=== PATIENT | female | born 1995 | race Caucasian/White ===

== ENCOUNTER 2017-03-14 16:23 | Emergency (ER) | payer BC ==
[2017-03-14 16:32] VITALS: BP 120/69
--- NOTE | 2017-03-14 16:42 | UC ---
Throat Pain/Nasal [place] HPI - HPI Summary HPI Summary: 21 y/o female presents to the urgent care c/o sore throat, body aches, temp of 100.5, mild BRANHAM since this morning. Pt has not taking anything to alleviate symptoms. Pt states sore throat with difficulty swallowing, pain 5/10. Pt denies cough, SOB, chest pain, abdominal pain, N/V/D - History of Current Complaint Chief Complaint: UCRespiratory Stated Complaint: THROAT PAIN Time Seen by Provider: 03/14/17 16:33 Hx Obtained From: Patient Hx Last Menstrual Period: 01/2017 ?: No Onset/Duration: Gradual Onset, Lasting Hours - since this morning, Still Present Severity: Moderate Pain Intensity: 5 Pain Scale Used: 0-10 Numeric Cough: None Associated Signs & Symptoms: Positive: Dysphagia, Sinus Discomfort, Fever - Epiglottits Risk Factors Epiglottis Risk Factors: Negative - Allergies/Home Medications Allergies/Adverse Reactions: Allergies Allergy/AdvReac Type Severity Reaction Status Date / Time No Known Allergies Allergy Verified 03/14/17 16:32 Home Medications: Home Medications Desogestrel-Ethinyl Estradiol [Kariva 0.15-0.02/0.01 mg (11/10)] 1 tab PO [History] PMH/Surg Hx/FS Hx/Imm Hx Previously Healthy: Yes - Pt denies PMHX - Surgical History Surgical History: None - Family History Known Family History: Positive: Cardiac Disease, Diabetes - Social History Occupation: Student Lives: With Family Alcohol Use: Occasionally Substance Use Type: None Smoking Status (MU): Never Smoked Tobacco - Immunization History Vaccination Up to Date: Yes Review of Systems Constitutional: Fever, Other - body aches Skin: Negative Eyes: Negative ENT: Sore Throat, Sinus Congestion Respiratory: Negative Cardiovascular: Negative Gastrointestinal: Negative Genitourinary: Negative Motor: Negative Neurovascular: Negative Musculoskeletal: Negative Neurological: Headache - mild Psychological: Negative Is Patient Immunocompromised?: No All Other Systems Reviewed And Are Negative: Yes Physical Exam Triage Information Reviewed: Yes Vital Signs: Initial Vital Signs Temp 98.5 F 03/14/17 16:28 Pulse 108 03/14/17 16:28 Resp 18 03/14/17 16:28 BP 120/69 03/14/17 16:28 Pulse Ox 100 03/14/17 16:28 - Additional Comments VITAL SIGNS: Reviewed. GENERAL: Patient is a well developed and nourished female who is sitting comfortable in the examining table. Patient is not in any acute respiratory distress. HEAD AND FACE: No signs of trauma. No ecchymosis, hematomas or skull depressions. No sinus tenderness. EYES: PERRLA, EOMI x 2, No injected conjunctiva, no nystagmus. No photophobia. EARS: Hearing grossly intact. Ear canals and tympanic membranes are within normal limits. MOUTH: Positive pharynx with erythema, no exudates, positive palatal petechiae. B/L tonsillar enlargement with mild exudate. Uvula in midline. NECK: Supple, trachea is midline, Positive anterior cervical lymphadenopathy, no JVD, no carotid bruit, no c-spine tenderness, neck with full ROM. CHEST: Symmetric, no tenderness at palpation LUNGS: Clear to auscultation bilaterally. No wheezing or crackles. CVS: Regular rate and rhythm, S1 and S2 present, no murmurs or gallops appreciated. ABDOMEN: Soft, non-tender. No signs of distention. No rebound no guarding, and no masses palpated. Bowel sounds are normal. EXTREMITIES: FROM in all major joints, no edema, no cyanosis or clubbing. NEURO: Alert and oriented x 3. No acute neurological deficits. Speech is normal and follows commands. SKIN: Dry and warm Throat Pain/Nasal Course/Dx - Course Course Of Treatment: 21 y/o female presents to the urgent care c/o sore throat, body aches, temp of 100.5, mild BRANHAM since this morning. Pt has not taking anything to alleviate symptoms. Pt states sore throat with difficulty swallowing , pain 5/10. Pt denies cough, SOB, chest pain, abdominal pain, N/V/D. HX obtained. Rapid strep ordered, result: negative. Viral pharyngitis. Influeza A& B ordered, result: negative. Pt Rx ibuprofen PO to alleviates symptoms of pain and swelling. Advised on hand washing to avoid spreading. Pt advised to rest, eat well and avoid strenuous exercise. If symptoms do not improve or worsen advised to return to the urgent care or f/u with her PCP for further evaluation and treatment. Pt understood and agreed - Differential Dx/Diagnosis Differential Diagnosis/HQI/PQRI: Influenza, Mononucleosis, Otitis Media, Pharyngitis, Sinusitis, Tonsillitis, URI Provider Diagnoses: 1- Viral pharyngitis Discharge - Discharge Plan Condition: Stable Disposition: HOME Patient Education Materials: Pharyngitis (ED) Referrals: [facility] [Outside] - If Needed Additional Instructions: 1-Please take ibuprofen PO q6-8hrs prn as instructed after meals to alleviate pain and swelling. Please increase fluid intake, rest , eat well. avoid strenuous exercise. 2-If symptoms do not improve or worsen please return to the urgent care or f/u with your PCP for further evaluation and treatment.
== END 2017-03-14 17:07 | disposition home or self-care (01) ==
LOC: UCEAST 16:23
DX: J06.9 Acute upper respiratory infection, unspecified (principal)
CPT/HCPCS: 87502; 87651; 99202; G0463

== ENCOUNTER 2017-04-02 07:44 | Emergency (ER) | payer BC ==
[2017-04-02 07:55] VITALS: BP 134/74
--- NOTE | 2017-04-02 09:46 | UC ---
Skin Complaint HPI - HPI Summary HPI Summary: PT HERE CONCERNED ABOUT HERPES. HAD SEX WITH A MALE ABOUT 3 WEEKS AGO WHO YESTERDAY INFORMED HER THAT HE WAS DIAGNOSED WITH GENITAL HERPES. HAD LESIONS AT BASE OF PENIS OUTSIDE THE CONDOM AREA THAT PT THOUGH WAS RAZOR BURN. SHE PERFORMED ORAL SEX ON HIM AND ALSO HAD VAGINAL INTERCOURSE. ABOUT 4 DAYS LATER DEVELOPED LOW BACK PAIN, FEVER [address] DENIES ANY LESIONS. SX LASTED ABOUT 2 DAYS AND PT CONTINUES TO BE SYMPTOM FREE. DUE TO RECENT DIAGNOSIS OF SEX PARTNER PT IS REQUESTING HERPES TESTING. - History of Current Complaint Chief Complaint: UCSTDScreening Time Seen by Provider: 04/02/17 08:40 Stated Complaint: PERSONAL Hx Obtained From: Patient Hx Last Menstrual Period: 03/22/17 Skin Exposure Onset/Duration: Weeks Ago Current Severity: None Pain Intensity: 0 Pain Scale Used: 0-10 Numeric Associated Signs & Symptoms: Positive: Negative - Allergy/Home Medications Allergies/Adverse Reactions: Allergies Allergy/AdvReac Type Severity Reaction Status Date / Time No Known Allergies Allergy Verified 04/02/17 07:52 Review of Systems Constitutional: Negative Skin: Negative Respiratory: Negative Cardiovascular: Negative Gastrointestinal: Negative All Other Systems Reviewed And Are Negative: Yes PMH/Surg Hx/FS Hx/Imm Hx Previously Healthy: Yes - Surgical History Surgical History: None - Family History Known Family History: Positive: Cardiac Disease, Hypertension, Diabetes - Social History Alcohol Use: Occasionally Substance Use Type: None Smoking Status (MU): Never Smoked Tobacco - Immunization History Vaccination Up to Date: Yes Physical Exam Triage Information Reviewed: Yes Appearance: Well-Appearing, No Pain Distress, Well-Nourished Vital Signs: Initial Vital Signs Temp 97.8 F 04/02/17 07:52 Pulse 87 04/02/17 07:52 Resp 20 04/02/17 07:52 BP 134/74 04/02/17 07:52 Pulse Ox 100 04/02/17 07:52 Vital Signs Reviewed: Yes Eyes: Positive: Conjunctiva Clear ENT: Positive: Hearing grossly normal Neck: Positive: Supple Respiratory: Positive: No respiratory distress, No accessory muscle use Cardiovascular: Positive: Pulses Normal Abdomen Description: Positive: Soft Musculoskeletal: Positive: No Edema Neurological: Positive: Alert Psychological: Positive: Age Appropriate Behavior Skin: Negative: rashes Course/Dx - Diagnoses Provider Diagnoses: HERPES EXPOSURE Discharge - Discharge Plan Condition: Stable Disposition: HOME Patient Education Materials: Genital Herpes Simplex (ED), Oral Herpes Simplex Virus Infections (ED) Referrals: [facility] [Primary Care Provider] - If Needed Additional Instructions: HERPES ANTIBODY TESTING DONE TODAY. BE VIGILANT OF YOUR SYMPTOMS AND IF YOU HAVE ANY SUSPICIOUS LESIONS GET SEEN AGAIN.
[2017-04-03 14:50] LABS: Herpes Simplex Virus I IgG AB Negative (Negative); Herpes Simplex Virus II IgG AB Negative (Negative)
[2017-04-04 11:47] LABS: Herpes Simplex IgM Screen Reactive (Negative)
--- NOTE | 2017-04-05 11:47 | UC ---
Progress - Progress Note Progress Note: Pt serum test for HSV following recent exposure. Pt with reactive IgM - antibody testing pending Pt neg IgG 1+2 negative Please update pt regarding pending confirmatory testing is pending. Mandeep 04/05/17
[2017-04-06 09:13] LABS: Reference Lab Test SEE COMMENTS
--- NOTE | 2017-04-08 20:08 | UC ---
Progress - Progress Note Progress Note: Pt serum test for HSV following recent exposure. Pt with reactive IgM - antibody testing pending Pt neg IgG 1+2 negative Please update pt regarding pending confirmatory testing is pending. Mandeep 04/05/17 Update 04/08--reactive for IgM antibody, but confirmatory test is still pending.
== END 2017-04-02 09:44 | disposition home or self-care (01) ==
LOC: UCEAST 07:44
DX: Z20.2 Contact with and (suspected) exposure to infections with a predominantly sexual mode of transmission (principal); Z11.4 Encounter for screening for human immunodeficiency virus [HIV]
CPT/HCPCS: 36415; 86694; 86695; 86696; 86703; 99211; G0463

== ENCOUNTER 2017-07-15 20:37 | Emergency (ER) | payer BC ==
[2017-07-15 20:57] VITALS: BP 107/66
[2017-07-15] MEDS ORDERED: Sulfamethox/Trimethoprim DS 800/160* TAB PO ONE (21:59)
--- NOTE | 2017-07-15 21:59 | UC ---
Complaint Female HPI - HPI Summary HPI Summary: 21 yo WF c/o dysuria, urinary frequency and urgency and low abd pressure x 1 week w/o LBP, f/c/n/v - History Of Current Complaint Chief Complaint: UCGU Stated Complaint: BURNING URINATION Time Seen by Provider: 07/15/17 21:28 Hx Obtained From: Patient Hx Last Menstrual Period: 07/05/17 Onset/Duration: Lasting Days Timing: Constant Severity Initially: Moderate Severity Currently: Moderate Pain Intensity: 0 - Allergies/Home Medications Allergies/Adverse Reactions: Allergies Allergy/AdvReac Type Severity Reaction Status Date / Time No Known Allergies Allergy Verified 07/15/17 20:57 Home Medications: Home Medications Ferrous Gluconate [Iron] 240 mg PO DAILY 07/15/17 [History Confirmed 07/15/17] PMH/Surg Hx/FS Hx/Imm Hx - Additional Past Medical History Additional PMH: none - Surgical History Surgical History: None - Family History Known Family History: Positive: Cardiac Disease, Hypertension, Diabetes - Social History Alcohol Use: Occasionally Substance Use Type: None Smoking Status (MU): Never Smoked Tobacco - Immunization History Vaccination Up to Date: Yes Review of Systems Constitutional: Negative Skin: Negative Eyes: Negative ENT: Negative Respiratory: Negative Cardiovascular: Negative Gastrointestinal: Negative Genitourinary: Dysuria, Frequency, Urgency Motor: Negative Neurovascular: Negative Musculoskeletal: Negative Neurological: Negative Psychological: Negative Is Patient Immunocompromised?: No All Other Systems Reviewed And Are Negative: Yes Physical Exam Triage Information Reviewed: Yes Appearance: Well-Appearing Vital Signs: Initial Vital Signs Temp 36.2 C 07/15/17 20:52 Pulse 82 07/15/17 20:52 Resp 16 07/15/17 20:52 BP 107/66 07/15/17 20:52 Pulse Ox 99 07/15/17 20:52 Eye Exam: Normal ENT Exam: Normal Dental Exam: Normal Neck exam: Normal Neck: Positive: 1 Respiratory Exam: Normal Cardiovascular Exam: Normal Abdomen Description: Positive: Nontender, Soft. Negative: CVA Tenderness (R), CVA Tenderness (L) Musculoskeletal Exam: Normal Neurological Exam: Normal Psychological Exam: Normal Skin Exam: Normal Complaint Female Dx - Course Course Of Treatment: UA positive for blood and LE - Differential Dx/Diagnosis Differential Diagnosis/HQI/PQRI: Urinary Tract Infection Provider Diagnoses: Acute cystitis Discharge - Discharge Plan Condition: Stable Disposition: HOME Prescriptions: Sulfamethox/Trimethoprim DS* [Bactrim DS 800/160 TAB*] 1 tab PO BID 7 Days #14 tab Patient Education Materials: Urinary Tract Infection in Women (ED) [facility] - Additional Instructions: take medication as directed
== END 2017-07-15 22:18 | disposition home or self-care (01) ==
LOC: UCEAST 20:37
DX: N30.00 Acute cystitis without hematuria (principal); Z32.02 Encounter for pregnancy test, result negative
CPT/HCPCS: 81003; 84702; 87077; 87086; 87186; 99212; A9270-GY; G0463

== ENCOUNTER 2017-07-17 21:39 | Emergency (ER) | payer BC ==
[2017-07-17 22:47] LABS: ABS Basophils 0 10^3/ul (0-0.2); ABS Eosinophils 0 10^3/ul (0-0.6); ABS Lymphocytes 1.1 10^3/ul (1.0-4.8); ABS Monocytes 0.6 10^3/ul (0-0.8); ABS Neutrophils 2.7 10^3/ul (1.5-7.7); ABS Nucleated RBC 0 10^3/ul; Eosinophil % 0.9 % (0-6); Hematocrit 43 % (35-47); Hemoglobin 14.4 g/dl (12.0-16.0); Mean Corpuscular HGB Conc 34 g/dl (31-36); Mean Corpuscular Hemoglobin 30 pg (27-31); Mean Corpuscular Volume 88 fL (80-97); Mean Platelet Volume 8 um3 (7.4-10.4); Nucleated Red Blood Cells % 0.1; Platelet Count 176 10^3/ul (150-450); Red Blood Count 4.89 10^6/ul (4.0-5.4); Red Cell Distribution Width 13 % (10.5-15); White Blood Count 4.5 10^3/ul (3.5-10.8)
[2017-07-17] MEDS ORDERED: Acetaminophen TAB* 325 MG PO ONE (22:56)
[2017-07-17 23:00] LABS: EGFR Non-African American 68.3 (>60)
[2017-07-17 23:06] LABS: Urine Appearance Clear; Urine Blood 1+ (Negative); Urine Color Yellow; Urine Ketones 1+ (Negative); Urine Protein Negative (Negative); Urine Specific Gravity 1.015 (1.010-1.030); Urine Urobilinogen Negative (Negative)
--- NOTE | 2017-07-17 23:15 | ED ---
HPI Febrile Illness - HPI Summary HPI Summary: 21-year-old female presents with fever and sinus congestion today. She states she was diagnosed with UTI 3 days ago and placed on Bactrim. She denies any flank pain and bowel pain nausea or vomiting. She hasn't taken anything for her fever today. She admits to muscle aches. She denies any cough or sore throat. She states the burning with urination has improved. She denies any vaginal discharge. She has not taken anything for her fever. - History of Current Complaint Chief Complaint: EDFever Time Seen by Provider: 07/17/17 22:21 Hx Last Menstrual Period: 07/05/17 Pain Intensity: 3 - Allergy/Home Medications Allergies/Adverse Reactions: Allergies Allergy/AdvReac Type Severity Reaction Status Date / Time No Known Allergies Allergy Verified 07/17/17 21:52 PMH/Surg Hx/FS Hx/Imm Hx Endocrine/Hematology History: Denies: Hx Anticoagulant Therapy Cardiovascular History: Denies: Hx Hypertension Infectious Disease History: No Infectious Disease History: Denies: Hx Clostridium Difficile, Hx Hepatitis, Hx Human Immunodeficiency Virus (HIV), Hx of Known/Suspected MRSA, Hx Shingles, Hx Tuberculosis, Hx Known/ Suspected VRE, Hx Known/Suspected VRSA, History Other Infectious Disease, Traveled Outside the [place] in Last 30 Days - Family History Known Family History: Positive: Cardiac Disease, Hypertension, Diabetes - Social History Alcohol Use: Occasionally Substance Use Type: Reports: None Smoking Status (MU): Never Smoked Tobacco Review of Systems Positive: Fever Positive: Nasal Discharge Negative: Chest Pain Negative: Shortness Of Breath Negative: Abdominal Pain Positive: dysuria. Negative: flank pain All Other Systems Reviewed And Are Negative: Yes Physical Exam Triage Information Reviewed: Yes Vital Signs On Initial Exam: Initial Vitals Temp Pulse Resp BP Pulse Ox 99.7 F 110 18 139/75 100 07/17/17 21:48 07/17/17 21:48 07/17/17 21:48 07/17/17 21:48 07/17/17 21:48 Vital Signs Reviewed: Yes Appearance: Positive: Well-Appearing Skin: Positive: Warm, Dry Head/Face: Positive: Normal Head/Face Inspection Eyes: Positive: Normal, EOMI, JESUS, Conjunctiva Clear ENT: Positive: Normal ENT inspection, Pharynx normal, TMs normal Respiratory/Lung Sounds: Positive: Clear to Auscultation, Breath Sounds Present Cardiovascular: Positive: Normal, RRR Abdomen Description: Positive: Nontender, Soft. Negative: CVA Tenderness (R), CVA Tenderness (L) Bowel Sounds: Positive: Present Musculoskeletal: Positive: Normal Neurological: Positive: Normal Psychiatric: Positive: Normal Diagnostics - Vital Signs Vital Signs Temp Pulse Resp BP Pulse Ox 07/17/17 21:48 99.7 F 110 18 139/75 100 - Laboratory Lab Results: Lab Results 07/17/17 07/17/17 07/17/17 Range/Units 22:30 22:30 22:40 WBC 4.5 (3.5-10.8) 10^3/ul RBC 4.89 (4.0-5.4) 10^6/ul Hgb 14.4 (12.0-16.0) g/dl Hct 43 (35-47) % MCV 88 (80-97) fL MCH 30 (27-31) pg MCHC 34 (31-36) g/dl RDW 13 (10.5-15) % Plt Count 176 (150-450) 10^3/ul MPV 8 (7.4-10.4) um3 Neut % (Auto) 59.6 (38-83) % Lymph % (Auto) 25.0 (25-47) % [place] % (Auto) 13.8 H (0-7) % Eos % (Auto) 0.9 (0-6) % Baso % (Auto) 0.7 (0-2) % Absolute Neuts (auto) 2.7 (1.5-7.7) 10^3/ul Absolute Lymphs (auto) 1.1 (1.0-4.8) 10^3/ul Absolute Monos (auto) 0.6 (0-0.8) 10^3/ul Absolute Eos (auto) 0 (0-0.6) 10^3/ul Absolute Basos (auto) 0 (0-0.2) 10^3/ul Absolute Nucleated RBC 0 10^3/ul Nucleated RBC % 0.1 Sodium 134 (133-145) mmol/L Potassium 4.0 (3.5-5.0) mmol/L Chloride 102 (101-111) mmol/L Carbon Dioxide 24 (22-32) mmol/L Anion Gap 8 (2-11) mmol/L BUN 11 (6-24) mg/dL Creatinine 1.03 H (0.51-0.95) mg/dL Est GFR ( Amer) 87.9 (>60) Est GFR (Non-Af Amer) 68.3 (>60) BUN/Creatinine Ratio 10.7 (8-20) Glucose 86 (70-100) mg/dL Calcium 9.9 (8.6-10.3) mg/dL Total Bilirubin 0.30 (0.2-1.0) mg/dL AST 22 (13-39) U/L ALT 17 (7-52) U/L Alkaline Phosphatase 46 (34-104) U/L Total Protein 7.7 (6.4-8.9) g/dL Albumin 4.4 (3.2-5.2) g/dL Globulin 3.3 (2-4) g/dL Albumin/Globulin Ratio 1.3 (1-3) Beta HCG, Quant < 0.60 mIU/mL Urine Color Urine Appearance Urine pH (5-9) Ur Specific [place] (1.010-1.030) Urine Protein (Negative) Urine Ketones (Negative) Urine Blood (Negative) Urine Nitrate (Negative) Urine Bilirubin (Negative) Urine Urobilinogen (Negative) Ur Leukocyte Esterase (Negative) Urine WBC (Auto) (Absent) Urine RBC (Auto) (Absent) Ur Squamous Epith Cells (Absent) Urine Bacteria (Absent) Urine Glucose (Negative) Influenza A (Rapid) Negative (Negative) Influenza B (Rapid) Negative (Negative) 07/17/17 Range/Units 22:41 WBC (3.5-10.8) 10^3/ul RBC (4.0-5.4) 10^6/ul Hgb (12.0-16.0) g/dl Hct (35-47) % MCV (80-97) fL MCH (27-31) pg MCHC (31-36) g/dl RDW (10.5-15) % Plt Count (150-450) 10^3/ul MPV (7.4-10.4) um3 Neut % (Auto) (38-83) % Lymph % (Auto) (25-47) % [place] % (Auto) (0-7) % Eos % (Auto) (0-6) % Baso % (Auto) (0-2) % Absolute Neuts (auto) (1.5-7.7) 10^3/ul Absolute Lymphs (auto) (1.0-4.8) 10^3/ul Absolute Monos (auto) (0-0.8) 10^3/ul Absolute Eos (auto) (0-0.6) 10^3/ul Absolute Basos (auto) (0-0.2) 10^3/ul Absolute Nucleated RBC 10^3/ul Nucleated RBC % Sodium (133-145) mmol/L Potassium (3.5-5.0) mmol/L Chloride (101-111) mmol/L Carbon Dioxide (22-32) mmol/L Anion Gap (2-11) mmol/L BUN (6-24) mg/dL Creatinine (0.51-0.95) mg/dL Est GFR ( Amer) (>60) Est GFR (Non-Af Amer) (>60) BUN/Creatinine Ratio (8-20) Glucose (70-100) mg/dL Calcium (8.6-10.3) mg/dL Total Bilirubin (0.2-1.0) mg/dL AST (13-39) U/L ALT (7-52) U/L Alkaline Phosphatase (34-104) U/L Total Protein (6.4-8.9) g/dL Albumin (3.2-5.2) g/dL Globulin (2-4) g/dL Albumin/Globulin Ratio (1-3) Beta HCG, Quant mIU/mL Urine Color Yellow Urine Appearance Clear Urine pH 5.0 (5-9) Ur Specific [place] 1.015 (1.010-1.030) Urine Protein Negative (Negative) Urine Ketones 1+ H (Negative) Urine Blood 1+ H (Negative) Urine Nitrate Negative (Negative) Urine Bilirubin Negative (Negative) Urine Urobilinogen Negative (Negative) Ur Leukocyte Esterase Negative (Negative) Urine WBC (Auto) Trace(0-5/hpf) (Absent) Urine RBC (Auto) 1+(3-5/hpf) H (Absent) Ur Squamous Epith Cells Present H (Absent) Urine Bacteria Absent (Absent) Urine Glucose Negative (Negative) Influenza A (Rapid) (Negative) Influenza B (Rapid) (Negative) Result Diagrams: 07/17/17 22:30 07/17/17 22:30 Lab Statement: Any lab studies that have been ordered have been reviewed, and results considered in the medical decision making process. Course/Dx - Course Course Of Treatment: 21-year-old female presents with fever and sinus congestion today. She states she was diagnosed with UTI 3 days ago and placed on Bactrim. She denies any flank pain and bowel pain nausea or vomiting. She hasn't taken anything for her fever today. She admits to muscle aches. She denies any cough or sore throat. She states the burning with urination has improved. She denies any vaginal discharge. She has not taken anything her fever. On exam abdomen soft nontender. Lungs clear to auscultation. No CVA tenderness. Labs within normal limits. Flu negative.Likely viral. Urine culture from 2 days ago only had moderate amount of bacteria will wait for final culture to see about appropriate antibiotic. Urine here looks like UTI has resolved. Patient understands and agrees with plan. - Febrile Illness Differential Diagnoses: Pyelonephritis, Viremia, Other: - influenza - Diagnoses Provider Diagnoses: Fever Discharge - Discharge Plan Condition: Good Disposition: HOME Patient Education Materials: Fever in Adults (ED) [facility] [[facility] - Additional Instructions: Continue antibiotic as prescribed Take Tylenol or ibuprofen for fever every 6 hours Return to ED if develop any new or worsening symptoms
[2017-07-17 23:33] VITALS: BP 114/70
== END 2017-07-17 23:27 | disposition home or self-care (01) ==
LOC: ED 21:39
DX: R50.9 Fever, unspecified (principal); R09.81 Nasal congestion; R30.0 Dysuria; R11.2 Nausea with vomiting, unspecified
CPT/HCPCS: 36415; 80053; 81003; 81015; 84702; 85025; 87502; 99282; A9270-GY

== ENCOUNTER 2017-07-23 21:02 | Emergency (ER) | payer BC ==
[2017-07-23] MEDS ORDERED: hydrOXYzine HCL TAB* 50 MG PO ONE (21:34)
[2017-07-23] MEDS ORDERED: Famotidine TAB* 20 MG PO ONE (21:35)
--- NOTE | 2017-07-24 00:28 | ED ---
Skin Complaint - HPI Summary HPI Summary: Patient is an otherwise healthy 21-year-old female presenting to the ED with a diffuse morbilliform drug eruption which is profuse without papules or pustules. There is no mucosal involvement. She began an antibiotic for a UTI 7 days ago last dose was today when she developed the drug eruption. She endorses feeling warm, but denies any fevers. - History of Current Complaint Chief Complaint: EDRashSkinAbscess Time Seen by Provider: 07/23/17 21:30 Stated Complaint: RASH Hx Last Menstrual Period: 07/05/17 Pain Intensity: 0 - Allergy/Home Medications Allergies/Adverse Reactions: Allergies Allergy/AdvReac Type Severity Reaction Status Date / Time No Known Allergies Allergy Verified 07/23/17 21:31 PMH/Surg Hx/FS Hx/Imm Hx Endocrine/Hematology History: Denies: Hx Anticoagulant Therapy Cardiovascular History: Denies: Hx Hypertension - Immunization History Date of Influenza Vaccine: Fall 2016 Infectious Disease History: No Infectious Disease History: Denies: Hx Clostridium Difficile, Hx Hepatitis, Hx Human Immunodeficiency Virus (HIV), Hx of Known/Suspected MRSA, Hx Shingles, Hx Tuberculosis, Hx Known/ Suspected VRE, Hx Known/Suspected VRSA, History Other Infectious Disease, Traveled Outside the [place] in Last 30 Days - Family History Known Family History: Positive: Cardiac Disease, Hypertension, Diabetes - Social History Alcohol Use: Rare Substance Use Type: Reports: None Smoking Status (MU): Never Smoked Tobacco Physical Exam Vital Signs On Initial Exam: Initial Vitals Temp Pulse Resp BP Pulse Ox 99.6 F 101 16 116/53 98 07/23/17 21:15 07/23/17 21:15 07/23/17 21:15 07/23/17 21:15 07/23/17 21:15 Diagnostics - Vital Signs Vital Signs Temp Pulse Resp BP Pulse Ox 07/23/17 21:15 99.6 F 101 16 116/53 98 - Laboratory Lab Results: Lab Results 07/23/17 Range/Units 22:00 Monoscreen Negative (Negative) Lab Statement: Any lab studies that have been ordered have been reviewed, and results considered in the medical decision making process. Discharge - Discharge Plan Condition: Stable Disposition: HOME Prescriptions: hydrOXYzine HCL TAB* [Atarax TAB 50 MG *] 50 mg PO TID PRN #12 tab PRN Reason: Rash predniSONE TAB* [Deltasone TAB*] 50 mg PO DAILY #5 tab MDD 1 Patient Education Materials: Acute Rash (ED) [facility] - Additional Instructions: Hydroxyzine up to 3 X daily Benadryl 50 mg before bed Prednisone 50 mg once daily 5 days The drug rash will slowly dissipate over the next few days, but may take up to 1 week
[2017-07-24 02:40] VITALS: BP 105/60
== END 2017-07-23 22:56 | disposition home or self-care (01) ==
LOC: ED 21:02
DX: L27.0 Generalized skin eruption due to drugs and medicaments taken internally (principal); T36.95XA Adverse effect of unspecified systemic antibiotic, initial encounter
CPT/HCPCS: 36415; 86308; 99282; A9270-GY